=== PATIENT | female | born 1960 | race Asian ===

== ENCOUNTER 2017-03-05 07:40 | Emergency (ER) | payer OTHER ==
[~2017-03-05] VITALS: Ht 149.9 cm; Wt 58.0 kg
[~2017-03-05 07:40] MED LIST: CIPR500T4 PO
[2017-03-05 07:41] VITALS: BP 140/82; PULSE 102; RESP 22; TEMP 98.7; O2SAT 99
--- NOTE | 2017-03-05 07:52 | PD ---
HPI Chief Complaint: Abdominal Pain Time Seen by Provider: 07:52 Travel History International Travel<30 days: No Contact w/Intl Traveler<30days: No Traveled to known affect area: No History of Present Illness HPI The 57-year-old female patient presents the emergency department with 3 day history of anterior groin and thigh pain, status post lifting a heavy box in her home. Patient denies numbness, tingling, nausea, vomiting, changes in urine or bowels. She has no vaginal discharge. Pain is mainly in the extremities at first more on the right now on the left. Pain is worse with full extension of the left leg, and with ambulation. Patient states the pain radiates into the hip and down the medial anterior thigh. She denies weakness. He denies low back pain. She has no known drug allergies. PFSH Past Medical History Asthma: No Blood Disorders: No Heart Rhythm Problems: No Cancer: No Cardiovascular Problems: No Chest Pain: Yes Congestive Heart Failure: No COPD: No Cerebrovascular Accident: No Diabetes: No Diminished Hearing: No Endocrine: No Gastrointestinal Disorders: No Genitourinary: Yes (UTI) Hepatitis: No Hiatal Hernia: No Hypertension: Yes Immune Disorder: No Implanted Vascular Access Dvce: No Medical other: Yes (ANEMIA) Musculoskeletal: No Neurologic: No Psychiatric: No Reproductive: Yes (EXCESSIVE BLEEDING) Respiratory: Yes (ALLERGIES: DUST) Myocardial Infarction: No Sleep Apnea: No Thyroid Disease: No ?: Not : 3 Para: 3 Miscarriage: 0 Tubal Ligation: Yes Past Surgical History Other Surgery: No Social History Alcohol Use: No Tobacco Use: No Substance Use: No Allergies-Medications (Allergen,Severity, Reaction): Coded Allergies: No Known Allergies (Verified Adverse Reaction, Unknown, 03/05/17) Reported Meds & Prescriptions Reported Meds & Active Scripts Active Cipro (Ciprofloxacin HCl) 500 Mg Tab 500 Mg PO BID 5 Days Review of Systems Except as stated in HPI: all other systems reviewed are Neg General / Constitutional: No: Fever Eyes: No: Visual changes HENT: No: Headaches Cardiovascular: No: Chest Pain or Discomfort Respiratory: No: Shortness of Breath Gastrointestinal: No: Abdominal Pain Genitourinary: No: Dysuria Musculoskeletal: Positive: Myalgias, Arthralgias, Limited ROM, Pain Skin: No Rash Neurologic: No: Weakness Psychiatric: No: Depression Endocrine: No: Polydipsia Hematologic/Lymphatic: No: Easy Bruising Physical Exam Narrative GENERAL: Patient appears in mild to moderate distress SKIN: Warm and dry. Normal color. Normal turgor. No rash. HEAD: Atraumatic. Normocephalic. EYES: Pupils equal and round. No scleral icterus. No injection or drainage. ENT: No nasal bleeding or discharge. Mucous membranes pink and moist. NECK: Trachea midline. Supple and nontender. CARDIOVASCULAR: Regular rate and rhythm. RESPIRATORY: No accessory muscle use. Clear to auscultation. Breath sounds equal bilaterally. GASTROINTESTINAL: Abdomen soft, non-tender, nondistended. Hepatic and splenic margins not palpable. Patient has no discernible abdominal pain with palpation or percussion. MUSCULOSKELETAL: Extremities without clubbing, cyanosis, or edema. No obvious deformities. Patient has reproducible muscle skeletal pain in the left hip and thigh consistent with ileus psoas band strain, and possible sacroiliitis. Negative straight leg raise pain. This is not sciatica. NEUROLOGICAL: Awake and alert. No obvious cranial nerve deficits. Motor grossly within normal limits. Five out of 5 muscle strength in the arms and legs. Normal speech. PSYCHIATRIC: Appropriate mood and affect; insight and judgment normal. Data Data Last Documented VS Vital Signs Date Time Temp Pulse Resp B/P (MAP) Pulse Ox O2 Delivery O2 Flow Rate FiO2 03/05/17 07:53 18 03/05/17 07:41 98.7 102 140/82 (101) 99 Room Air Orders Orders Ketorolac Inj (Toradol Inj) (03/05/17 08:15) Prednisone (Deltasone) (03/05/17 08:15) [facility] Medical Decision Making Medical Screen Exam Complete: Yes Emergency Medical Condition: Yes Differential Diagnosis Groin pull. Hip strain. Iliopsoas strain. Sacroiliitis. Narrative Course Radiographic imaging is not felt warranted based on my history and physical. Patient is given Toradol 60 mg IM. Patient is given 40 mg prednisone by mouth. She states she cannot take NSAIDs due to stomach upset. Patient will be continued on Flexeril 10 mg 3 times a day when necessary #15. Patient continued on prednisone 20 mg twice a day 5 days. Patient is to use heat, and stretches as discussed. Patient should follow-up with a primary care physician as needed. Diagnosis Primary Impression: Strain of left hip and thigh Qualified Codes: S76.012A - Strain of muscle, fascia and tendon of left hip, initial encounter; S76.912A - Strain of unspecified muscles, fascia and tendons at thigh level, left thigh, initial encounter Additional Impression: Sacroiliitis Referrals: Primary Care Physician Patient Instructions: General Instructions, Hip Sprain (ED), Lower Back Exercises (ED), Sacroiliitis (ED) Additional Instructions: Radiographic imaging is not felt warranted based on my history and physical. Patient is given Toradol 60 mg IM. Patient is given 40 mg prednisone by mouth. She states she cannot take NSAIDs due to stomach upset. Patient will be continued on Flexeril 10 mg 3 times a day when necessary #15. Patient continued on prednisone 20 mg twice a day 5 days. Patient is to use heat, and stretches as discussed. Patient should follow-up with a primary care physician as needed. Med/Other Pt SpecificInfo: Prescription(s) given Disposition: 01 DISCHARGE HOME Condition: Stable Charlie Prado Mar 05, 2017 07:52
[2017-03-05] MEDS ORDERED: CYCL10TA PO (08:15)
[2017-03-05] MEDS ORDERED: KETOROLAC TROMETHAMINE 60 MG/2 ML (IM) VIAL IM ONE (08:15)
[2017-03-05] MEDS ORDERED: PRED20 PO (08:15)
[2017-03-05] MEDS ORDERED: predniSONE 20 MG TAB PO ONE (08:15)
== END 2017-03-05 08:43 | disposition home or self-care (01) ==
LOC: NEPD 07:40
DX: S76.012A Strain of muscle, fascia and tendon of left hip, initial encounter (principal); M46.1 Sacroiliitis, not elsewhere classified; X50.9XXA Other and unspecified overexertion or strenuous movements or postures, initial encounter; Y93.89 Activity, other specified; Y92.009 Unspecified place in unspecified non-institutional (private) residence as the place of occurrence of the external cause
CPT/HCPCS: 99282; J1885; J7512

== ENCOUNTER 2017-05-02 19:53 | Emergency (ER) | payer OTHER ==
[~2017-05-02] VITALS: Ht 149.9 cm; Wt 57.7 kg
[~2017-05-02 19:53] MED LIST changes: +CYCL10TA PO; +PRED20 PO
[2017-05-02 19:55] VITALS: BP 171/83; PULSE 67; RESP 16; TEMP 98.1; O2SAT 100
--- NOTE | 2017-05-02 20:41 | RADRPT ---
EXAM DATE/TIME: 05/02/2017 20:20 [place] COMPARISON: No previous studies available for comparison. INDICATIONS : Short of breath. MEDICAL HISTORY : None. SURGICAL HISTORY : None. ENCOUNTER: Initial ACUITY: 4 - 6 days PAIN SCORE: 0/10 LOCATION: Bilateral chest FINDINGS: PA and lateral views of the chest demonstrate the lungs to be symmetrically aerated without evidence of mass, infiltrate or effusion. The heart size is mildly enlarged.. Osseous structures are intact. CONCLUSION: 1. No acute intrathoracic disease. 2. Compensated cardiomegaly. Polo Martins MD on May 02, 2017 at 20:38 Board Certified Radiologist. This report was verified electronically.
[2017-05-02 21:43] LABS: AUTOMATED NEUTROPHIL # 2.8 TH/MM3 (1.8-7.7); BASOPHIL % 0.7 % (0.0-2.0); EOSINOPHIL # 0.2 TH/MM3 (0-0.4); EOSINOPHIL % 3.5 % (0.0-4.0); HEMOGLOBIN 13.9 GM/DL (11.6-15.3); LYMPH % 44.7 % (9.0-44.0); LYMPHOCYTE # 2.9 TH/MM3 (1.0-4.8); MEAN CORPUSCULAR HEMOGLOBIN 31.2 PG (27.0-34.0); MEAN CORPUSCULAR HGB CONC 34.7 % (32.0-36.0); MEAN PLATELET VOLUME 7.6 FL (7.0-11.0); MONO % 8.1 % (0.0-8.0); MONOCYTE # 0.5 TH/MM3 (0-0.9); PLATELET COUNT 255 TH/MM3 (150-450); RED BLOOD COUNT 4.44 MIL/MM3 (4.00-5.30); RED CELL DISTRIBUTION WIDTH 13.2 % (11.6-17.2); WHITE BLOOD COUNT 6.5 TH/MM3 (4.0-11.0)
[2017-05-02 21:59] LABS: BICARBONATE 27.7 MEQ/L (21.0-32.0); BLOOD UREA NITROGEN 14 MG/DL (7-18); CALCIUM 9.8 MG/DL (8.5-10.1); CHLORIDE 107 MEQ/L (98-107); CREATININE 0.81 MG/DL (0.50-1.00); GLOMERULAR FILTRATION RATE 73 ML/MIN (>89); GLUCOSE,RANDOM 121 MG/DL (74-106); MAGNESIUM 2.4 MG/DL (1.5-2.5); SODIUM (NA) 141 MEQ/L (136-145)
[2017-05-02 22:06] LABS: TROPONIN I LESS THAN 0.02 NG/ML (0.02-0.05)
[2017-05-03 00:23] VITALS: BP 132/76; PULSE 55; RESP 18; O2SAT 100
[2017-05-03] MEDS ORDERED: FLUT1SPR5 EACH NARE (02:34)
[2017-05-03] MEDS ORDERED: ALBUAER3 INH (02:34)
--- NOTE | 2017-05-03 02:34 | PD ---
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 She says it seems like it similar to a pain she had in the past where albuterol was prescribed and it helped patient is afebrile no cough no fever no nausea no vomiting no diarrhea no left sided chest pain no radiation sharp stabbing quick short pain not at relieved by Tylenol continues in the ER she is not diaphoretic not vomiting no signs of ACS. PFSH Past Medical History Asthma: No Blood Disorders: No Heart Rhythm Problems: No Cancer: No Cardiovascular Problems: No Chest Pain: Yes Congestive Heart Failure: No COPD: No Cerebrovascular Accident: No Diabetes: No Diminished Hearing: No Endocrine: No Gastrointestinal Disorders: No Genitourinary: Yes (UTI) Hepatitis: No Hiatal Hernia: No Hypertension: Yes Immune Disorder: No Implanted Vascular Access Dvce: No Medical other: Yes (ANEMIA) Musculoskeletal: No Neurologic: No Psychiatric: No Reproductive: Yes (EXCESSIVE BLEEDING) Respiratory: Yes (ALLERGIES: DUST) Myocardial Infarction: No Sleep Apnea: No Thyroid Disease: No Influenza Vaccination: No ?: Not : 3 Para: 3 Miscarriage: 0 Tubal Ligation: Yes Past Surgical History Gynecologic Surgery: Yes (fibroid 2010) Other Surgery: No Social History Alcohol Use: No Tobacco Use: No Substance Use: No Allergies-Medications (Allergen,Severity, Reaction): Coded Allergies: No Known Allergies (Verified Adverse Reaction, Unknown, 05/03/17) Reported Meds & Prescriptions Reported Meds & Active Scripts Active Flonase Nasal [place] (Fluticasone Nasal [place]) 50 Mcg/Act [place] 50 Mcg EACH NARE BID Proair Hfa 8.5 GM Inh (Albuterol Sulfate) 90 Mcg/Act Aer 2 Puff INH Q4-6H PRN 108 mcg/actuation Review of Systems Except as stated in HPI: all other systems reviewed are Neg Cardiovascular: Positive: Chest Pain or Discomfort (Right Chest pain) Physical Exam Narrative GENERAL: Non toxic and awake alert SKIN: Warm and dry. HEAD: Atraumatic. Normocephalic. EYES: Pupils equal and round. No scleral icterus. No injection or drainage. ENT: No nasal bleeding or discharge. Mucous membranes pink and moist. NECK: Trachea midline. No JVD. CARDIOVASCULAR: Regular rate and rhythm. reproducible CP right 3 intercostal area RESPIRATORY: No accessory muscle use. Clear to auscultation. Breath sounds equal bilaterally. GASTROINTESTINAL: Abdomen soft, non-tender, nondistended. Hepatic and splenic margins not palpable. MUSCULOSKELETAL: Extremities without clubbing, cyanosis, or edema. No obvious deformities. NEUROLOGICAL: Awake and alert. No obvious cranial nerve deficits. Motor grossly within normal limits. Five out of 5 muscle strength in the arms and legs. Normal speech. PSYCHIATRIC: Appropriate mood and affect; insight and judgment normal. Data Data Last Documented VS Orders Orders Complete Blood Count With Diff (05/02/17 20:07) Basic Metabolic Panel (Bmp) (05/02/17 20:07) Magnesium (Mg) (05/02/17 20:07) Ckmb (Isoenzyme) Profile (05/02/17 20:07) Troponin I (05/02/17 20:07) Electrocardiogram (05/02/17 20:07) Chest, Pa & Lat (05/02/17 20:07) CKMB (05/02/17 21:30) CKMB% (05/02/17 21:30) Ed Discharge Order (05/03/17 02:34) Labs Laboratory Tests Test 05/02/17 21:30 White Blood Count 6.5 TH/MM3 Red Blood Count 4.44 MIL/MM3 Hemoglobin 13.9 GM/DL Hematocrit 40.0 % Mean Corpuscular Volume 90.0 FL Mean Corpuscular Hemoglobin 31.2 PG Mean Corpuscular Hemoglobin Concent 34.7 % Red Cell Distribution Width 13.2 % Platelet Count 255 TH/MM3 Mean Platelet Volume 7.6 FL Neutrophils (%) (Auto) 43.0 % Lymphocytes (%) (Auto) 44.7 % Monocytes (%) (Auto) 8.1 % Eosinophils (%) (Auto) 3.5 % Basophils (%) (Auto) 0.7 % Neutrophils # (Auto) 2.8 TH/MM3 Lymphocytes # (Auto) 2.9 TH/MM3 Monocytes # (Auto) 0.5 TH/MM3 Eosinophils # (Auto) 0.2 TH/MM3 Basophils # (Auto) 0.0 TH/MM3 CBC Comment DIFF FINAL Differential Comment Blood Urea Nitrogen 14 MG/DL Creatinine 0.81 MG/DL Random Glucose 121 MG/DL Calcium Level 9.8 MG/DL Magnesium Level 2.4 MG/DL Sodium Level 141 MEQ/L Potassium Level 3.5 MEQ/L Chloride Level 107 MEQ/L Carbon Dioxide Level 27.7 MEQ/L Anion Gap 6 MEQ/L Estimat Glomerular Filtration Rate 73 ML/MIN Total Creatine Kinase 117 U/L Creatine Kinase MB 0.9 NG/ML Troponin I LESS THAN 0.02 NG/ML MDM Medical Decision Making Medical Screen Exam Complete: Yes Emergency Medical Condition: Yes Differential Diagnosis Muscle strian vs Myocardial ischemic pain vs Bromchitis vs costochandritis vs other Narrative Course EKG and Trop were negative and pt treated as bronchitis and cough induced muscle aches and d/c with Albuterol and Flovant for nasal rhinitis after lungs , pt trequested flonase and d/c follow up out pt Diagnosis Primary Impression: Wheeze Additional Impressions: Chest pain Qualified Codes: R07.9 - Chest pain, unspecified Intercostal muscle strain Qualified Codes: S29.011A - Strain of muscle and tendon of front wall of thorax, initial encounter Patient Instructions: Acute Cough (ED), General Instructions, Wheezing (ED) Scripts Fluticasone Nasal [place] (Flonase Nasal [place]) 50 Mcg/Act [place] 50 MCG EACH NARE BID for Allergies, #1 BOTTLE 0 Refills Prov: Isael Arthur MD 05/03/17 Albuterol 8.5 GM Inh (Proair Hfa 8.5 GM Inh) 90 Mcg/Act Aer 2 PUFF INH Q4-6H Y for SHORTNESS OF BREATH, #1 INHALER 0 Refills 108 mcg/actuation Prov: Isael Arthur MD 05/03/17 Disposition: 01 DISCHARGE HOME Isael Arthur MD May 03, 2017 02:34
--- NOTE | 2017-05-03 20:28 | EKG ---
Date Performed: 05/02/2017 Time Performed: 21:24:48 PTAGE: 57 years EKG: Sinus rhythm NONSPECIFIC T-WAVE ABNORMALITY BORDERLINE ECG Since the prior tracing, there has been no significant change PREVIOUS TRACING : 01/09/2007 19.10 DOCTOR: Joselito Arteaga Interpretating Date/Time 05/03/2017 20:21:21
== END 2017-05-03 02:51 | disposition home or self-care (01) ==
LOC: NEPE 19:53
DX: R06.2 Wheezing (principal); R07.9 Chest pain, unspecified; R94.31 Abnormal electrocardiogram [ECG] [EKG]; S29.011A Strain of muscle and tendon of front wall of thorax, initial encounter; I10 Essential (primary) hypertension; D64.9 Anemia, unspecified
CPT/HCPCS: 71046; 80048; 82550; 82552; 83735; 84484; 85025; 93005; 99285